=== PATIENT | female | born 1990 | race Caucasian/White ===

== ENCOUNTER 2017-06-12 17:53 | Emergency (ER) | payer BC, OTHER ==
[~2017-06-12] VITALS: Ht 154.9 cm; Wt 67.1 kg
[2017-06-12] MEDS ORDERED: BCP PO (18:07)
[2017-06-12] MEDS ORDERED: EFFE75CA75 PO (18:07)
[2017-06-12] MEDS ORDERED: RABIES IMMUNE GLOBULIN 1500 INTERNATIONAL UNITS/10 ML VIAL (90375) IM ONE ×2 (19:30→20:00)
[2017-06-12] MEDS ORDERED: RABIES VACCINE HUMAN 2.5 INTERNATIONAL UNITS/ML VIAL (90675) IM ONE (19:30)
[2017-06-12 20:54] VITALS: BP 128/71
== END 2017-06-12 20:57 | disposition home or self-care (01) ==
LOC: M ED 17:53
DX: Z20.3 Contact with and (suspected) exposure to rabies (principal); Z23 Encounter for immunization; F32.9 Major depressive disorder, single episode, unspecified; Z79.899 Other long term (current) drug therapy

== ENCOUNTER 2017-06-15 09:05 | Emergency (ER) | payer OTHER ==
[~2017-06-15] VITALS: Ht 154.9 cm; Wt 67.6 kg
[~2017-06-15 09:05] MED LIST: BCP PO; EFFE75CA75 PO
[2017-06-15 09:06] VITALS: BP 135/61
[2017-06-15] MEDS ORDERED: RABIES VACCINE HUMAN 2.5 INTERNATIONAL UNITS/ML VIAL (90675) IM ONE (09:30)
== END 2017-06-15 09:39 | disposition home or self-care (01) ==
LOC: M ED 09:05
DX: Z20.3 Contact with and (suspected) exposure to rabies (principal); F32.9 Major depressive disorder, single episode, unspecified; Z88.8 Allergy status to other drugs, medicaments and biological substances; Z79.899 Other long term (current) drug therapy

== ENCOUNTER 2017-06-19 15:05 | Emergency (ER) | payer OTHER ==
[~2017-06-19] VITALS: Ht 154.9 cm; Wt 68.1 kg
[2017-06-19 15:06] VITALS: BP 121/66
[2017-06-19] MEDS ORDERED: RABIES VACCINE HUMAN 2.5 INTERNATIONAL UNITS/ML VIAL (90675) IM ONE (15:45)
== END 2017-06-19 16:11 | disposition home or self-care (01) ==
LOC: M ED 15:05
DX: Z20.3 Contact with and (suspected) exposure to rabies (principal); Z23 Encounter for immunization; F32.9 Major depressive disorder, single episode, unspecified; Z79.3 Long term (current) use of hormonal contraceptives; Z79.899 Other long term (current) drug therapy; Z88.8 Allergy status to other drugs, medicaments and biological substances

== ENCOUNTER 2017-06-26 17:19 | Emergency (ER) | payer OTHER ==
[~2017-06-26] VITALS: Ht 154.9 cm; Wt 68.1 kg
[2017-06-26 17:19] VITALS: BP 118/71
[2017-06-26] MEDS ORDERED: RABIES VACCINE HUMAN 2.5 INTERNATIONAL UNITS/ML VIAL (90675) IM ONE (18:30)
== END 2017-06-26 18:59 | disposition home or self-care (01) ==
LOC: M ED 17:19
DX: Z20.3 Contact with and (suspected) exposure to rabies (principal); F33.9 Major depressive disorder, recurrent, unspecified; Z79.899 Other long term (current) drug therapy; Z88.8 Allergy status to other drugs, medicaments and biological substances

== ENCOUNTER → 2019-01-14 | Outpatient (REF) | payer OTHER ==
[~2019-01-14] MED LIST changes: +EFFE75CA2 PO; -EFFE75CA75 PO
== END ==
LOC: M LAB REF 11:29
PROVIDERS: ATTEND Physician Assistant
DX: J04.0 Acute laryngitis (principal)

== ENCOUNTER → 2019-04-29 | Outpatient (REF) | payer OTHER ==
[2019-04-29 16:47] LABS: HCG, SERUM QUALITATIVE NEGATIVE (NEGATIVE)
== END ==
LOC: M LAB REF 16:36
PROVIDERS: ATTEND Internal Medicine
DX: N91.2 Amenorrhea, unspecified (principal)

== ENCOUNTER → 2023-05-04 | Outpatient (REF) | payer OTHER ==
[2023-05-04 18:39] LABS: PERCENT SATURATION 6.5 % (13.2-45.0)
[2023-05-04 18:42] LABS: FERRITIN 4.9 NG/ML (7.3-270.7)
== END ==
LOC: M LAB REF 16:29
PROVIDERS: ATTEND Internal Medicine
DX: D64.9 Anemia, unspecified (principal)

== ENCOUNTER → 2023-09-04 | Outpatient (REF) | payer OTHER ==
[2023-09-04 18:04] LABS: PERCENT SATURATION 20.9 % (13.2-45.0)
[2023-09-04 18:06] LABS: FERRITIN 16.6 NG/ML (7.3-270.7)
== END ==
LOC: M LAB REF 16:13
PROVIDERS: ATTEND Internal Medicine
DX: D50.9 Iron deficiency anemia, unspecified (principal)

== ENCOUNTER → 2024-07-29 | Outpatient (REF) | payer OTHER ==
[2024-07-29 18:36] LABS: PERCENT SATURATION 41.5 % (13.2-45.0)
[2024-07-29 18:39] LABS: FERRITIN 15.9 NG/ML (7.3-270.7)
== END ==
LOC: M LAB REF 17:59
PROVIDERS: ATTEND Internal Medicine
DX: D50.9 Iron deficiency anemia, unspecified (principal)

== ENCOUNTER → 2024-08-06 | Outpatient (REF) | payer OTHER | LOC: M LAB REF 16:04 | PROVIDERS: ATTEND Physician Assistant | DX: B34.9 Viral infection, unspecified (principal) ==

== ENCOUNTER → 2025-02-16 | Outpatient (REF) | payer OTHER ==
[2025-02-16 18:55] LABS: FERRITIN 8.5 NG/ML (7.3-270.7); PERCENT SATURATION 13.6 % (13.2-45.0)
== END ==
LOC: M LAB REF 17:24
PROVIDERS: ATTEND Internal Medicine
DX: D50.9 Iron deficiency anemia, unspecified (principal)

== ENCOUNTER → 2025-08-18 | Outpatient (REF) | payer OTHER ==
[2025-08-18 18:15] LABS: IRON (FE) 36.0 UG/DL (50-170); PERCENT SATURATION 10.3 % (13.2-45.0)
== END ==
LOC: M LAB REF 17:10
PROVIDERS: ATTEND Internal Medicine
DX: D64.9 Anemia, unspecified (principal)